=== PATIENT | female | born 1965 | race African-American/Black ===

== ENCOUNTER 2020-02-19 12:19 | Outpatient (CLI) | payer OTHER | END 2020-02-19 12:20 | disposition critical access hospital (66) | LOC: EMS 12:19 | PROVIDERS: ATTEND Surgery | DX: M54.9 Dorsalgia, unspecified (principal); R25.2 Cramp and spasm | CPT/HCPCS: A0425; A0427 ==

== ENCOUNTER 2020-02-19 13:05 | Emergency (ER) | payer OTHER ==
[2020-02-19] MEDS ORDERED: KETOROLAC 60 MG/2 ML VIAL IM STA (13:24)
[2020-02-19] MEDS ORDERED: CHERRY SYRUP 10 ML UDC PO ONE (13:24)
[2020-02-19] MEDS ORDERED: DEXAMETHASONE 10 MG/ML VIAL PO STA (13:24)
--- NOTE | 2020-02-19 13:28 | ED Physician Documentation ---
PD HPI BACK PAIN - Stated complaint Stated Complaint: BACK PAIN - Chief complaint Chief Complaint: Back Pain - History obtained from History obtained from: Patient - History of Present Illness Timing - onset: Today Timing - duration: Minutes Timing - details: Abrupt onset, Still present Location: Lower, Left Quality: Pain, Spasm, Sharp Associated symptoms: Numbness. No: Fever, Weakness, Incontinent of urine, Unable to urinate, Hematuria, Incontinent of stool Improves with: Rest Worsened by: Movement, Twisting, Palpation Contributing factors: Other (caryying a dresser moved wrong and back spasmed) Similar symptoms before: Has not had sx before Recently seen: Not recently seen - Additional information Additional information: 54-year-old female was at work today moving a dresser when she went to set it down she had acute onset of pain in her lower back on the left side. This pain now extends down into her leg causing some numbness in the posterior aspect of the leg and over the dorsum of the foot. She has not had this previously. She denies any trouble with her bowel or bladder. She does state that she was moving a lot of furniture at work today and that she believes she is adequately hydrated. Review of Systems Constitutional: denies: Fever Eyes: denies: Decreased vision Ears: denies: Ear pain Nose: denies: Congestion Throat: denies: Sore throat Cardiac: denies: Chest pain / pressure Respiratory: denies: Cough GI: denies: Nausea, Vomiting PD PAST MEDICAL HISTORY - Present Medications Home Medications: Ambulatory Orders Medication Instructions Recorded Confirmed Cyclobenzaprine [Flexeril] 10 mg PO TID PRN #20 tablet 02/19/20 Hydrocodone/Acetaminophen 1 - 2 each PO Q6H PRN #14 tablet 02/19/20 [Hydrocodon-Acetaminophen 5-325] - Allergies Allergies/Adverse Reactions: Allergies Allergy/AdvReac Type Severity Reaction Status Date / Time No Known Drug Allergies Allergy Verified 02/19/20 13:14 PD ED PE NORMAL - Vitals Vital signs reviewed: Yes (hypertensive ) - General General: Alert and oriented X 3, Well developed/nourished, Other (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) - HEENT HEENT: Atraumatic, PERRL, EOMI - Neck Neck: Supple, no meningeal sign, No bony TTP - Respiratory Respiratory: No respiratory distress - Back Back: No CVA TTP, No spinal TTP, Other (There is tenderness to the lower lumbar paraspinous muscles onthe left side extending into the sciatic notch ) - Derm Derm: Normal color, Warm and dry, No rash - Extremities Extremities: No deformity, No edema - Neuro Neuro: Alert and oriented X 3, 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, No motor deficit, No sensory deficit, Normal speech Eye Opening: Spontaneous Motor: Obeys Commands Verbal: Oriented GCS Score: 15 - Psych Psych: Normal mood, Other (Affect is flat) Results - Vitals Vitals: Vital Signs - 24 hr 02/19/20 13:11 Temperature 36.9 C Heart Rate 63 Respiratory 12 Rate Blood Pressure 187/89 H O2 Saturation 97 Oxygen O2 Source Room air PD MEDICAL DECISION MAKING - ED course Complexity details: reviewed results, re-evaluated patient, considered differential, d/w patient ED course: 54-year-old female with an acute work-related injury to her back has acute spasm and sciatica. She is administered dexamethasone 10 mg orally 60 mg of Toradol IM and will place her on some pain medication a muscle relaxant give her a note for work for 4 days. Departure - Departure Disposition: Home, Self Care Clinical Impression: Sciatica Qualifiers: Laterality: left Qualified Code(s): M54.32 - Sciatica, left side Condition: Stable Instructions: ED Sciatica Follow-Up: [facility] [Provider Group] Prescriptions: Cyclobenzaprine [Flexeril] 10 mg PO TID PRN #20 tablet PRN Reason: Spasms Hydrocodone/Acetaminophen [Hydrocodon-Acetaminophen 5-325] 1 - 2 each PO Q6H PRN #14 tablet PRN Reason: pain Forms: Activity restrictions
[2020-02-19 13:50] VITALS: BP 161/92
[2020-02-19] MEDS ORDERED: KETOROLAC 30 MG/ML VIAL IVP STA (13:56)
== END 2020-02-19 14:04 | disposition home or self-care (01) ==
LOC: ED 13:05
DX: S39.92XA Unspecified injury of lower back, initial encounter (principal); X50.0XXA Overexertion from strenuous movement or load, initial encounter; Y93.89 Activity, other specified; Y99.0 Civilian activity done for income or pay; M54.42 Lumbago with sciatica, left side; M62.830 Muscle spasm of back
CPT/HCPCS: 96374; 99283; 99284; A9270

== ENCOUNTER 2020-02-26 09:54 | Emergency (ER) | payer OTHER ==
[2020-02-26] MEDS ORDERED: KETOROLAC 60 MG/2 ML VIAL IM STA (10:14)
[2020-02-26] MEDS ORDERED: DEXAMETHASONE 10 MG/ML VIAL IM STA (10:14)
--- NOTE | 2020-02-26 10:16 | ED Physician Documentation ---
PD HPI BACK PAIN - Stated complaint Stated Complaint: BACK PX - Chief complaint Chief Complaint: Back Pain - History obtained from History obtained from: Patient - Additional information Additional information: 54-year-old woman with no history of back pain previously. About a week ago she was lifting something, a piece of furniture, at work, and developed severe low back pain. She was seen here, back pain is persistent and she has numbness in both legs, left worse than right now with incontinence of urine. She has some weakness especially in the left leg. No fevers. Review of Systems Constitutional: reports: Reviewed and negative Throat: reports: Reviewed and negative Cardiac: reports: Reviewed and negative Respiratory: reports: Reviewed and negative PD PAST MEDICAL HISTORY - Past Medical History Past Medical History: No - Present Medications Home Medications: Ambulatory Orders Medication Instructions Recorded Confirmed Cyclobenzaprine [Flexeril] 10 mg PO TID PRN #20 tablet 02/19/20 Hydrocodone/Acetaminophen 1 - 2 each PO Q6H PRN #14 tablet 02/19/20 [Hydrocodon-Acetaminophen 5-325] Meloxicam [Mobic] 7.5 mg PO BID PRN #20 tablet 02/26/20 Oxycodone HCl/Acetaminophen 1 - 2 each PO Q6H PRN #14 tablet 02/26/20 [Percocet 5-325 mg Tablet] - Allergies Allergies/Adverse Reactions: Allergies Allergy/AdvReac Type Severity Reaction Status Date / Time No Known Drug Allergies Allergy Verified 02/26/20 10:01 - Social History Does the pt smoke?: No Smoking Status: Never smoker Does the pt drink ETOH?: Yes - Immunizations Immunizations are current?: Yes Immunizations: TDAP current <10years PD ED PE NORMAL - Vitals Vital signs reviewed: Yes - General General: Alert and oriented X 3, Other (She appears uncomfortable) - Abdomen Abdomen: Soft, Non tender - Back Back: Other (Tender in the mid and low lumbar spine) - Extremities Extremities: Other (Diminished but not absent sensation in the left leg, it seems diffuse without a dermatomal pattern per se. She has a normal right patellar reflex, slightly hyperactive left patellar reflex.) - Neuro Neuro: Alert and oriented X 3, Normal speech Results - Vitals Vitals: Vital Signs - 24 hr 02/26/20 02/26/20 02/26/20 09:57 10:01 12:01 Temperature 36.2 C L Heart Rate 85 80 86 Respiratory 16 16 16 Rate Blood Pressure 156/104 H 142/78 H 146/80 H O2 Saturation 97 97 97 Oxygen O2 Source Room air - EKG (time done) 1110 Rate: Rate (enter#) (66) Rhythm: NSR, LAE [place]: Normal Intervals: Normal RI QRS: Normal Ischemia: Non specific changes Computer interpretation: Disagree with computer (Says the RI interval is short but it looks fairly normal to me.) - Rads (name of study) MRI Lspine Radiology: Final report received, See rad report PD MEDICAL DECISION MAKING - ED course ED course: 54-year-old woman presents with predominantly left-sided sciatic symptoms, and concerning [place] she has urinary incontinence so an MRI was performed without pertinent positive findings except for degenerative changes especially at L5-S1. She was feeling better after meds here. Departure - Departure Disposition: Home, Self Care Clinical Impression: Sciatica Qualifiers: Laterality: left Qualified Code(s): M54.32 - Sciatica, left side Back pain Qualifiers: Back pain location: low back pain Chronicity: acute Back pain laterality: bilateral Sciatica presence: with sciatica Sciatica laterality: sciatica of left side Qualified Code(s): M54.42 - Lumbago with sciatica, left side Instructions: ED Exercises Lumbar Muscles, ED Low Back Pain Injury Prescriptions: Meloxicam [Mobic] 7.5 mg PO BID PRN #20 tablet PRN Reason: Pain Oxycodone HCl/Acetaminophen [Percocet 5-325 mg Tablet] 1 - 2 each PO Q6H PRN #14 tablet PRN Reason: pain Comments: Call your doctor to arrange a follow-up appointment, make the next available appointment. In the interim, return anytime if worse or if new symptoms develop. Forms: Activity restrictions
--- NOTE | 2020-02-26 12:56 | MRI Report ---
PROCEDURE: Lumbar Spine W/O INDICATIONS: back pain p incontinence TECHNIQUE: Noncontrast sagittal T1 spin echo and T2 fast echo, sagittal STIR, axial T1 and T2 fast spin echo thr ough the lumbar spine. In cases with scoliosis, additional coronal T2 fast spin echo may be performe d. COMPARISON: None. FINDINGS: Image quality: Diagnostic, with note made of motion artifact. Alignment and Curvature: There is normal bony alignment. Bone Marrow: Marrow is of normal overall signal. No acute vertebral body compression fractures. Spinal Cord: Conus medullaris terminates at the L1 level. Visualized cord demonstrates normal signa l and size. Paraspinous Soft Tissues: No paravertebral masses. T12-L1: Normal in appearance. L1-L2: Normal in appearance. L2-L3: Normal in appearance. L3-L4: Normal in appearance. L4-L5: The disc height and disc signal are well preserved. Moderate disc bulge is seen, which is ec centric to the right. Moderate facet hypertrophy is seen. There is moderate right-sided and mild to moderate left-sided neuroforaminal narrowing seen. Mild to moderate central canal narrowing is seen. L5-S1: Mild loss of disc height and disc signal are seen. Moderate disc bulge is seen, which is ecc entric to the right. Mild to moderate facet hypertrophy is seen. There is moderate left-sided and at least moderate right-sided neuroforaminal narrowing seen. Mild central canal narrowing is seen. IMPRESSION: No significant acute abnormality is seen to explain the patient's presenting symptoms. Lumbar spine degenerative changes are seen inferiorly, which are overall most prominent at L5-S1. Reviewed by: Preston Sawyer MD on 02/26/2020 11:55 AM [place] Approved by: Preston Sawyer MD on 02/26/2020 11:55 AM [place] Station ID: [id number]
[2020-02-26 14:39] VITALS: BP 142/82
== END 2020-02-26 13:32 | disposition home or self-care (01) ==
LOC: ED 09:54
DX: M54.42 Lumbago with sciatica, left side (principal)
CPT/HCPCS: 72148; 96372; 99284